=== PATIENT | male | born 1975 | race Caucasian/White ===

== ENCOUNTER 2022-08-07 16:40 | Inpatient (IN) | payer OTHER ==
[2022-08-07 20:16] VITALS: BMI 26.1
[2022-08-07] MEDS ORDERED: DICYCLOMINE HCL 10 MG CAPSULE PO PRN (20:46)
[2022-08-07] MEDS ORDERED: NALOXONE HCL 0.4 MG/ML VIAL IM PRN (20:46)
[2022-08-07] MEDS ORDERED: POLYETHYLENE GLYCOL (HEALTHYLAX) 3350 17 GM PACKET PO PRN (20:46)
[2022-08-07] MEDS ORDERED: IBUPROFEN 400 MG TABLET (FP) PO PRN (20:46)
[2022-08-07] MEDS ORDERED: IBUPROFEN 600 MG TABLET (FP) PO PRN (20:46)
[2022-08-07] MEDS ORDERED: methaDONE HCL 10 MG TABLET (FOR DETOX USE ONLY) PO ONE (20:46)
[2022-08-07] MEDS ORDERED: BISMUTH SUBSALICYLATE 524 MG/30 ML PO PRN (20:46)
[2022-08-07] MEDS ORDERED: NALOXONE HCL (KLOXXADO) 8 MG SPRAY NS PRN (20:46)
[2022-08-07] MEDS ORDERED: MAGNESIUM HYDROX 2400MG/30ML ORAL SUSPENSION 30 ML CUP PO PRN (20:46)
[2022-08-07] MEDS ORDERED: BENZOCAINE/MENTHOL (CHLORASEPTIC ) LOZENGE MM PRN (20:46)
[2022-08-07] MEDS ORDERED: ONDANSETRON *ODT* 4 MG TABLET SL PRN (20:46)
[2022-08-07] MEDS ORDERED: ACETAMINOPHEN 325 MG TABLET (FP) PO PRN (20:46)
[2022-08-07] MEDS ORDERED: guaiFENesin 600 MG TABLET.ER (FP) PO PRN (20:46)
[2022-08-07] MEDS ORDERED: BENZONATATE 200 MG CAPSULE PO PRN (20:46)
[2022-08-07] MEDS ORDERED: methaDONE HCL 10 MG TABLET (FOR DETOX USE ONLY) ONE (21:59)
[2022-08-07] MEDS: MELATONIN 5 MG TABLETS PO SCH (23:53)
[2022-08-07] MEDS: CLINDAMYCIN HCL 150 MG CAPSULE (FP) PO SCH (23:53)
[2022-08-07] MEDS: diazePAM 5 MG TABLET PO SCH (23:54)
[2022-08-07] MEDS: METHOCARBAMOL 500 MG TABLET PO PRN (23:54)
[2022-08-07] MEDS: THIAMINE HCL 100 MG TABLET (FP) PO SCH (23:54)
[2022-08-08] MEDS: diazePAM 5 MG TABLET PO SCH ×4 (05:17→22:19)
[2022-08-08] MEDS: CLINDAMYCIN HCL 150 MG CAPSULE (FP) PO SCH ×4 (05:17→23:10)
[2022-08-08] MEDS: NICOTINE 10 MG CARTRIDGE (INHALER) IH PRN ×3 (05:19→17:39)
[2022-08-08] MEDS: NICOTINE 21 MG/24 HOURS TOPICAL PATCH TD SCH (10:10)
[2022-08-08] MEDS: PRENATAL VITAMINS W/ FOLIC ACID TABLET (FP) PO SCH (10:10)
[2022-08-08] MEDS: METHOCARBAMOL 500 MG TABLET PO PRN ×2 (10:10→22:18)
[2022-08-08 11:33] LABS: HEMOGLOBIN 11.9 GM/dL (11.7-16.9); MCH 28.4 pg (25.7-33.7); MEAN CELL VOLUME 81.2 fl (80-96); PLATELET COUNT 250 10^3/uL (134-434); RBC 4.18 M/mm3 (4.00-5.60); RDW 14.5 % (11.9-15.9); WHITE BLOOD COUNT 5.4 K/mm3 (4.0-10.0)
[2022-08-08 12:02] LABS: BLOOD UREA NITROGEN 15.9 mg/dL (7-18); CALCIUM 9.3 mg/dL (8.5-10.1)
[2022-08-08 12:04] LABS: ALBUMIN 3.8 g/dl (3.4-5.0)
[2022-08-08 12:06] LABS: BILIRUBIN,TOTAL 0.5 mg/dL (0.2-1); CREATININE 0.9 mg/dL (0.55-1.3); TOT PROT 7.1 g/dl (6.4-8.2)
[2022-08-08] MEDS: THIAMINE HCL 100 MG TABLET (FP) PO SCH (22:17)
[2022-08-08] MEDS: MELATONIN 5 MG TABLETS PO SCH (22:17)
[2022-08-08] MEDS: cloNIDine HCL 0.1 MG TABLET PO PRN (22:18)
[2022-08-09] MEDS: diazePAM 5 MG TABLET PO PRN ×2 (03:17→10:27)
[2022-08-09] MEDS: diazePAM 5 MG TABLET PO SCH ×3 (05:58→22:23)
[2022-08-09] MEDS: CLINDAMYCIN HCL 150 MG CAPSULE (FP) PO SCH ×4 (05:58→23:19)
[2022-08-09] MEDS: MAG HYDROX/AL HYDROX/SIMETH 30 ML UNIT-DOSE CUP PO PRN (05:59)
[2022-08-09] MEDS: PRENATAL VITAMINS W/ FOLIC ACID TABLET (FP) PO SCH (09:37)
[2022-08-09] MEDS: NICOTINE 21 MG/24 HOURS TOPICAL PATCH TD SCH (09:38)
[2022-08-09] MEDS ORDERED: methaDONE HCL 10 MG TABLET (FOR DETOX USE ONLY) PO ONE (10:00)
[2022-08-09] MEDS: NICOTINE 10 MG CARTRIDGE (INHALER) IH PRN (17:40)
[2022-08-09] MEDS: THIAMINE HCL 100 MG TABLET (FP) PO SCH (22:21)
[2022-08-09] MEDS: METHOCARBAMOL 500 MG TABLET PO PRN (22:23)
[2022-08-09] MEDS: traZODone HCL 50 MG TABLET (FP) PO SCH (22:23)
[2022-08-09] MEDS: LOPERAMIDE HCL 2 MG CAPSULE PO PRN (23:43)
[2022-08-09] MEDS: cloNIDine HCL 0.1 MG TABLET PO PRN (23:43)
[2022-08-10] MEDS: CLINDAMYCIN HCL 150 MG CAPSULE (FP) PO SCH ×4 (05:53→23:00)
[2022-08-10] MEDS: diazePAM 5 MG TABLET PO SCH ×2 (05:53→17:48)
[2022-08-10] MEDS: NICOTINE 10 MG CARTRIDGE (INHALER) IH PRN ×2 (06:20→17:52)
[2022-08-10] MEDS: METHOCARBAMOL 500 MG TABLET PO PRN ×2 (08:45→17:51)
[2022-08-10] MEDS: diazePAM 5 MG TABLET PO PRN (08:45)
[2022-08-10] MEDS: PRENATAL VITAMINS W/ FOLIC ACID TABLET (FP) PO SCH (10:12)
[2022-08-10] MEDS: NICOTINE 21 MG/24 HOURS TOPICAL PATCH TD SCH (10:14)
[2022-08-10] MEDS: LOPERAMIDE HCL 2 MG CAPSULE PO PRN ×2 (10:45→23:47)
[2022-08-10] MEDS: THIAMINE HCL 100 MG TABLET (FP) PO SCH (22:16)
[2022-08-10] MEDS: traZODone HCL 50 MG TABLET (FP) PO SCH (22:20)
[2022-08-11] MEDS: METHOCARBAMOL 500 MG TABLET PO PRN ×3 (00:36→22:17)
[2022-08-11] MEDS: CLINDAMYCIN HCL 150 MG CAPSULE (FP) PO SCH ×3 (05:19→17:44)
[2022-08-11] MEDS ORDERED: diazePAM 5 MG TABLET PO ONE (06:00)
[2022-08-11] MEDS: MAG HYDROX/AL HYDROX/SIMETH 30 ML UNIT-DOSE CUP PO PRN ×2 (08:38→20:26)
[2022-08-11] MEDS ORDERED: methaDONE HCL 10 MG TABLET (FOR DETOX USE ONLY) PO ONE (10:00)
[2022-08-11] MEDS: NICOTINE 21 MG/24 HOURS TOPICAL PATCH TD SCH (10:11)
[2022-08-11] MEDS: PRENATAL VITAMINS W/ FOLIC ACID TABLET (FP) PO SCH (10:11)
[2022-08-11 12:01] LABS: HIV INTERPRETATION NEGATIVE (NEGATIVE)
[2022-08-11] MEDS ORDERED: SUVOREXANT 10 MG TABLET PO PRN (22:00)
[2022-08-11] MEDS: THIAMINE HCL 100 MG TABLET (FP) PO SCH (22:16)
[2022-08-12] MEDS: CLINDAMYCIN HCL 150 MG CAPSULE (FP) PO SCH ×2 (00:56→06:30)
[2022-08-12] MEDS: MAG HYDROX/AL HYDROX/SIMETH 30 ML UNIT-DOSE CUP PO PRN (02:49)
[2022-08-12 06:40] VITALS: BP 133/82; PULSE 75; RESP 18; TEMP 98.4
[2022-08-12] MEDS: NICOTINE 10 MG CARTRIDGE (INHALER) IH PRN (08:55)
[2022-08-12] MEDS: PRENATAL VITAMINS W/ FOLIC ACID TABLET (FP) PO SCH (09:28)
[2022-08-12] MEDS: NICOTINE 21 MG/24 HOURS TOPICAL PATCH TD SCH (09:28)
== END 2022-08-12 09:02 | disposition home or self-care (01) | DRG 773 ==
LOC: YASAS 16:40 → Y3N 22:42
PROVIDERS: ADMIT Allergy & Immunology; ATTEND Surgery
PROC: HZ2ZZZZ Detoxification Services for Substance Abuse Treatment (ICD-10-PCS; principal; 2022-08-07)
DX: F11.23 Opioid dependence with withdrawal (principal); F10.20 Alcohol dependence, uncomplicated; F13.230 Sedative, hypnotic or anxiolytic dependence with withdrawal, uncomplicated; F17.210 Nicotine dependence, cigarettes, uncomplicated; G47.00 Insomnia, unspecified; L03.113 Cellulitis of right upper limb; L03.114 Cellulitis of left upper limb; Z88.0 Allergy status to penicillin; Z28.310 Unvaccinated for COVID-19; Z28.9 Immunization not carried out for unspecified reason
CPT/HCPCS: 36415; 80053; 85027; 86780; 87389; 93005; 93010; C9803-CS; U0003; U0005

== ENCOUNTER 2024-05-07 13:33 | Inpatient (IN) | payer OTHER ==
[2024-05-07 14:21] VITALS: BMI 24.9
[2024-05-07] MEDS ORDERED: P-EPHED 60MG/TRIPROLIDI 2.5MG TABLET PO PRN (14:38)
[2024-05-07] MEDS ORDERED: MAGNESIUM HYDROX 2400MG/30ML ORAL SUSPENSION 30 ML CUP PO PRN (14:38)
[2024-05-07] MEDS ORDERED: DICYCLOMINE HCL 10 MG CAPSULE PO PRN (14:38)
[2024-05-07] MEDS ORDERED: POLYETHYLENE GLYCOL (HEALTHYLAX) 3350 17 GM PACKET PO PRN (14:38)
[2024-05-07] MEDS ORDERED: BISMUTH SUBSALICYLATE 262 MG/15 ML BTL PO PRN (14:38)
[2024-05-07] MEDS ORDERED: MAG HYDROX/AL HYDROX/SIMETH 30 ML UNIT-DOSE CUP PO PRN (14:38)
[2024-05-07] MEDS ORDERED: BENZOCAINE/MENTHOL (CHLORASEPTIC ) LOZENGE MM PRN (14:38)
[2024-05-07] MEDS ORDERED: ONDANSETRON *ODT* 4 MG TABLET SL PRN (14:38)
[2024-05-07] MEDS ORDERED: guaiFENesin 600 MG TABLET.ER (FP) PO PRN (14:38)
[2024-05-07] MEDS ORDERED: LOPERAMIDE HCL 2 MG CAPSULE PO PRN (14:38)
[2024-05-07] MEDS ORDERED: NALOXONE (NARCAN) HCL 4 MG/0.1 ML SPRAY NS PRN (14:38)
[2024-05-07] MEDS ORDERED: IBUPROFEN 400 MG TABLET (FP) PO PRN (14:38)
[2024-05-07] MEDS ORDERED: ACETAMINOPHEN 325 MG TABLET (FP) PO PRN (14:38)
[2024-05-07] MEDS ORDERED: BENZONATATE 200 MG CAPSULE PO PRN (14:38)
[2024-05-07] MEDS ORDERED: methaDONE HCL 10 MG TABLET (FOR DETOX USE ONLY) PO PRN (14:40)
[2024-05-07] MEDS ORDERED: diazePAM 5 MG TABLET PO PRN (14:40)
[2024-05-07] MEDS: traZODone HCL 50 MG TABLET (FP) PO ONE (21:22)
[2024-05-07] MEDS: methaDONE HCL 10 MG TABLET (FOR DETOX USE ONLY) PO ONE (21:22)
[2024-05-07] MEDS: MELATONIN 5 MG TABLETS PO SCH (21:23)
[2024-05-07] MEDS: THIAMINE 100 MG TABLET PO SCH (21:23)
[2024-05-07] MEDS: cloNIDine HCL 0.1 MG TABLET PO PRN (22:29)
[2024-05-08] MEDS: METHOCARBAMOL 500 MG TABLET PO PRN (10:05)
[2024-05-08] MEDS: IBUPROFEN 600 MG TABLET (FP) PO PRN (10:05)
[2024-05-08] MEDS: PRENATAL VITAMINS W/ FOLIC ACID TABLET (FP) PO SCH (10:05)
[2024-05-08] MEDS: SELENIUM SULFIDE 2.25% 180 ML SHAMPOO TP SCH (10:08)
[2024-05-08 10:12] LABS: HEMATOCRIT 38.5 % (35.4-49); HEMOGLOBIN 12.5 GM/dL (11.7-16.9); MCH 27.5 pg (25.7-33.7); MCHC 32.5 g/dl (32.0-35.9); MEAN CELL VOLUME 84.8 fl (80-96); MEAN PLT VOLUME 8.7 fl (7.5-11.1); PLATELET COUNT 245 10^3/uL (134-434); RBC 4.54 M/mm3 (4.00-5.60); RDW 13.9 % (11.9-15.9); WHITE BLOOD COUNT 4.3 K/mm3 (4.0-10.0)
[2024-05-08] MEDS: FLUOXETINE HCL PO SCH (12:31)
[2024-05-08] MEDS: [UNRECOGNIZED DRUG - OTHER] PO SCH (12:31)
[2024-05-08] MEDS: OLANZAPINE PO SCH (12:31)
[2024-05-08 12:46] LABS: CHLORIDE 105 mmol/L (98-107); SODIUM 139 mmol/L (136-145)
[2024-05-08 12:55] LABS: CALCIUM 9.4 mg/dL (8.5-10.1)
[2024-05-08 12:56] LABS: ALBUMIN 3.6 g/dl (3.4-5.0); ANION GAP 8 mmol/L (4-13); CO2 26 mmol/L (21-32); GLUCOSE,RANDOM 74 mg/dL (74-106)
[2024-05-08 12:58] LABS: BLOOD UREA NITROGEN 13.6 mg/dL (7-18)
[2024-05-08 12:59] LABS: CREATININE 0.9 mg/dL (0.55-1.3); SGOT/AST 18 U/L (15-37)
[2024-05-08 13:03] LABS: BILIRUBIN,TOTAL 0.6 mg/dL (0.2-1)
[2024-05-08 13:04] LABS: ALK PHOS 46 U/L (45-117); SGPT/ALT 26 U/L (13-61)
[2024-05-08 13:11] LABS: TOT PROT 6.6 g/dl (6.4-8.2)
[2024-05-08] MEDS: traZODone HCL 50 MG TABLET (FP) PO SCH (22:39)
[2024-05-09] MEDS: methaDONE HCL 10 MG TABLET (FOR DETOX USE ONLY) PO ONE (09:15)
[2024-05-10] MEDS: hydrOXYzine PAMOATE 25 MG CAPSULE (FP) PO PRN (20:18)
[2024-05-10] MEDS: traZODone HCL 100 MG TABLET (FP) PO SCH (21:56)
[2024-05-11] MEDS: amLODIPine BESYLATE 5 MG TABLET (FP) PO SCH (09:44)
[2024-05-11] MEDS: methaDONE HCL 10 MG TABLET (FOR DETOX USE ONLY) PO ONE (09:45)
[2024-05-11] MEDS: cloNIDine HCL 0.1 MG TABLET PO SCH (13:14)
[2024-05-11] MEDS: SUVOREXANT 10 MG TABLET PO PRN (22:20)
[2024-05-12 06:41] VITALS: RESP 17; TEMP 98.9
[2024-05-12 09:07] VITALS: BP 158/80; PULSE 80
[2024-05-12] MEDS: NALOXONE (NYS OPIOID OVERDOSE PROGRAM) 4 MG/0.1 ML SPRAY NS SCH (09:53)
== END 2024-05-12 10:15 | disposition home or self-care (01) | DRG 773 ==
LOC: YASAS 13:33 → Y6N 15:15
PROVIDERS: ADMIT Allergy & Immunology; ATTEND Allergy & Immunology
PROC: HZ2ZZZZ Detoxification Services for Substance Abuse Treatment (ICD-10-PCS; principal; 2024-05-07)
DX: F11.23 Opioid dependence with withdrawal (principal); F10.20 Alcohol dependence, uncomplicated; F13.20 Sedative, hypnotic or anxiolytic dependence, uncomplicated; F17.213 Nicotine dependence, cigarettes, with withdrawal; F19.282 Other psychoactive substance dependence with psychoactive substance-induced sleep disorder; F19.24 Other psychoactive substance dependence with psychoactive substance-induced mood disorder; I10 Essential (primary) hypertension; Z88.0 Allergy status to penicillin
CPT/HCPCS: 36415; 80053; 80305; 80307; 85027; 86780; 93005; 93010